=== PATIENT | female | born 1990 | race Caucasian/White ===

== ENCOUNTER 2019-03-19 20:57 | Emergency (ER) | payer SELFPAY ==
[~2019-03-19] VITALS: Ht 160 cm; Wt 63.5 kg
[~2019-03-19 20:57] MED LIST: ABILIFY5 M1; BENADRYL ALLERG25 M1
[2019-03-19 21:00] VITALS: Ht 160 cm; Wt 63.5 kg
[2019-03-20 00:40] VITALS: BP 130/65
== END 2019-03-19 23:35 | disposition home or self-care (01) ==
LOC: ED 20:57
DX: S61.213A Laceration without foreign body of left middle finger without damage to nail, initial encounter (principal); F31.9 Bipolar disorder, unspecified; W54.0XXA Bitten by dog, initial encounter; Y93.89 Activity, other specified; Y92.89 Other specified places as the place of occurrence of the external cause; Y99.8 Other external cause status
CPT/HCPCS: 90715; A4570

== ENCOUNTER 2019-03-22 18:59 | Emergency (ER) | payer SELFPAY ==
[~2019-03-22] VITALS: Ht 160 cm; Wt 62.6 kg
[2019-03-22 19:15] VITALS: BP 116/70; Ht 160 cm; Wt 62.6 kg
== END 2019-03-22 21:09 | disposition home or self-care (01) ==
LOC: ED 18:59
DX: S61.253D Open bite of left middle finger without damage to nail, subsequent encounter (principal); W54.0XXD Bitten by dog, subsequent encounter; F31.9 Bipolar disorder, unspecified

== ENCOUNTER 2019-12-25 23:00 | Emergency (ER) | payer OTHER ==
[~2019-12-25] VITALS: Ht 160 cm; Wt 68.0 kg
[2019-12-25 23:01] VITALS: BP 146/99; Ht 160 cm; Wt 68.0 kg
== END 2019-12-25 23:21 | disposition other institution (70) ==
LOC: ED 23:00
DX: Z02.89 Encounter for other administrative examinations (principal)